=== PATIENT | female | born 1970 | race Two or more races ===

== ENCOUNTER 2022-06-14 08:28 | Emergency (ER) | payer OTHER ==
[~2022-06-14] VITALS: Ht 165.1 cm; Wt 74.4 kg
[~2022-06-14 08:28] MED LIST: ZITHROMAX500 MG PO; [UNRECOGNIZED DRUG - OTHER] MM
== END 2022-06-14 15:10 | disposition home or self-care (01) ==
LOC: ER 08:28
DX: R10.11 Right upper quadrant pain (principal); Z88.6 Allergy status to analgesic agent

== ENCOUNTER 2024-05-24 19:05 | Emergency (ER) | payer OTHER ==
[~2024-05-24] VITALS: Ht 165.1 cm; Wt 72.6 kg
[2024-05-24] MEDS ORDERED: TRAMADOL HCL 50 MG TABLET PO ONE (19:45)
[2024-05-24] MEDS ORDERED: 0.9 % SODIUM CHLORIDE 1,000 ML IV SCH (19:45)
[2024-05-24] MEDS ORDERED: CEFTRIAXONE SODIUM 2,000 MG VIAL IV ONE (19:45)
[2024-05-24 19:56] LABS: HEMATOCRIT 43.6 % (36.0-45.00); HEMOGLOBIN 14.9 g/dL (12.0-15.00); MEAN CELL VOLUME 84.4 fL (80.00-100.00); MEAN CORPUSCULAR HEMOGLOBIN 28.8 pg (27.00-32.0); MEAN CORPUSCULAR HGB CONC 34.2 g/dl (32.0-36.0); PLATELET COUNT 269 K/uL (150-450); RED BLOOD COUNT 5.17 M/uL (4.00-6.00); RED CELL DISTRIBUTION WIDTH 13.1 % (11.5-14.5)
[2024-05-24] MEDS ORDERED: CEFTRIAXONE SODIUM 2,000 MG VIAL ONE (19:57)
[2024-05-24 20:11] LABS: PH,URINE 5.5 (5.0-8.0); URINE APPEARANCE Cloudy; URINE BILIRRUBIN Negative (NEGATIVE); URINE BLOOD Large; URINE COLOR Yellow; URINE GLUCOSE Negative (NEGATIVE); URINE KETONE Negative (NEGATIVE); URINE LEUKOCYTE Moderate; URINE NITRATE Positive; URINE PROTEIN 30 (NEGATIVE); URINE UROBILINOGEN 0.2 E.U./dl
[2024-05-24 20:14] LABS: URINE BACTERIA 3624.2 uL (0.0-1933); URINE EPITHELIAL CELLS 18.6 uL (0.0-38.8); URINE RBC 71.8 uL (0.0-20.8); URINE WBC 1624.7 uL (0.0-23.2)
[2024-05-24 20:16] LABS: ALBUMIN 3.2 gm/dL (3.4-5.0); BILIRUBIN TOTAL 0.45 mg/dL (0.3-1.2); CREATININE SERUM 0.89 mg/dL (0.55-1.02); GFR 66.6; POTASSIUM 3.7 mEq/L (3.5-5.1); TOTAL PROTEIN 8.2 gm/dL (6.4-8.2)
[2024-05-24 20:23] LABS: URINE CAST 1.17 uL (0.0-1.40)
[2024-05-24] MEDS ORDERED: PYRIDIUM200 MG PO (21:41)
[2024-05-24] MEDS ORDERED: LEVOFLOXACIN750 MG PO (21:41)
== END 2024-05-24 23:12 | disposition home or self-care (01) ==
LOC: ER 19:08
PROVIDERS: General Practice
DX: N39.0 Urinary tract infection, site not specified (principal); B96.20 Unspecified Escherichia coli [E. coli] as the cause of diseases classified elsewhere; N83.202 Unspecified ovarian cyst, left side; Z88.6 Allergy status to analgesic agent